=== PATIENT | female | born 1985 | race Caucasian/White ===

== ENCOUNTER 2020-11-04 00:09 | Outpatient (CLI) | payer OTHER | END 2020-11-04 02:48 | disposition home or self-care (01) | LOC: GENOP 00:09 | DX: O26.893 Other specified pregnancy related conditions, third trimester (principal); R10.9 Unspecified abdominal pain; Z3A.37 37 weeks gestation of pregnancy | CPT/HCPCS: G0463 ==

== ENCOUNTER 2020-11-15 11:15 | Inpatient (IN) | payer OTHER ==
[~2020-11-15] VITALS: Ht 160 cm; Wt 83.5 kg
[2020-11-15 12:03] LABS: WHITE BLOOD COUNT 11.2 K/UL (4.5-11.0)
[2020-11-15] MEDS ORDERED: ACETAMINOPHEN500 M1 PO (12:49)
[2020-11-15] MEDS ORDERED: OMEPRAZOLE MAGN20 MG PO (12:50)
[2020-11-15] MEDS ORDERED: DOCUSATE SODIU100 MG PO (19:51)
[2020-11-15] MEDS ORDERED: IBUPROFEN600 MG PO (19:51)
[2020-11-16 05:57] LABS: HEMOGLOBIN 9.5 gm/dl (12.3-15.3)
== END 2020-11-16 20:01 | disposition home or self-care (01) | DRG 807 ==
LOC: GENOP 11:15 → OB 11:45
PROVIDERS: ADMIT Obstetrics & Gynecology
PROC: 10E0XZZ Delivery of Products of Conception, External Approach (ICD-10-PCS; principal; 2020-11-15)
DX: O75.89 Other specified complications of labor and delivery (principal); Z37.0 Single live birth; K64.5 Perianal venous thrombosis; O80 Encounter for full-term uncomplicated delivery; Z3A.38 38 weeks gestation of pregnancy
CPT/HCPCS: 36415; 51702; 82800; 85014; 85018; 85025; 90471; 90715; J2590; J2795; J7120; U0002; U0003